=== PATIENT | female | born 1990 | race Caucasian/White ===

== ENCOUNTER 2020-09-16 15:09 | Emergency (ER) | payer OTHER ==
[~2020-09-16] VITALS: Ht 160 cm; Wt 79.4 kg
[2020-09-16 15:12] VITALS: BP 124/82
--- NOTE | 2020-09-16 15:30 | NUR ---
Dr. Echols evaluating pt at bedside.
[2020-09-16] MEDS ORDERED: KETOROLAC 60 MG/2 ML VIAL IM ONE (15:35)
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
--- NOTE | 2020-09-16 15:38 | NUR ---
Gave pt urine cup, asked for urine sample
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
--- NOTE | 2020-09-16 17:11 | NUR ---
Patient discharged with v/s stable. Written and verbal after care instructions given and explained. Patient alert, oriented and verbalized understanding of instructions. Ambulatory with steady gait. All questions addressed prior to discharge. ID band removed. Patient advised to follow up with PMD. Rx of Motrin & [place] given. Patient educated on indication of medication including possible reaction and side effects. Opportunity to ask questions provided and answered.
[2020-09-16 17:12] VITALS: BP 118/74
== END 2020-09-16 17:11 | disposition home or self-care (01) ==
LOC: MED 15:09
DX: M79.672 Pain in left foot (principal); M79.671 Pain in right foot; M54.5 Low back pain; F12.90 Cannabis use, unspecified, uncomplicated; W50.0XXA Accidental hit or strike by another person, initial encounter; Y93.89 Activity, other specified; Y92.89 Other specified places as the place of occurrence of the external cause; Y99.8 Other external cause status
CPT/HCPCS: 72100; 73630; 81025; 96372; 99284; J1885

== ENCOUNTER 2020-10-20 20:25 | Emergency (ER) | payer OTHER ==
[~2020-10-20] VITALS: Ht 157.5 cm; Wt 77.1 kg
[2020-10-20 20:28] VITALS: BP 132/90
--- NOTE | 2020-10-20 20:31 | NUR ---
TO LOBBY A/W BED AMBULATORY
--- NOTE | 2020-10-20 20:35 | NUR ---
PATIENT CALLED TO BED NO RESPONSE.
--- NOTE | 2020-10-20 20:40 | NUR ---
CALLED FOR THE SECOND TIME , NO RESPONSE
--- NOTE | 2020-10-20 20:45 | NUR ---
CALLED FOR THE THIRD TIME NO RESPONSE PATIENT LEFT WITHOUT BEING SEEN BY DR. GOODRICH. NO FURTHER CARE PROVIDED FOR PATIENT.
== END 2020-10-20 20:45 | disposition left against medical advice (07) ==
LOC: MED 20:25
DX: M79.672 Pain in left foot (principal); Z53.21 Procedure and treatment not carried out due to patient leaving prior to being seen by health care provider